=== PATIENT | male | born 1965 | race Caucasian/White ===

== ENCOUNTER 2022-07-06 07:16 | Emergency (ER) | payer OTHER, SELFPAY ==
[2022-07-06] VITALS (30 sets, daily range): BP systolic 117–176; BP diastolic 70–97; PULSE 55–76; RESP 13–22; TEMP 36.6–37.1; O2SAT 96–100; BMI 29.5
--- NOTE | 2022-07-06 07:49 | DI.RAD.S_ITS ---
PROCEDURE: XR CHEST 1V INDICATIONS: chest pain TECHNIQUE: One view of the chest was acquired. COMPARISON: None. FINDINGS: Surgical changes and devices: None. Lungs and pleura: Lungs are clear. No pleural effusions or pneumothorax. Mediastinum: Mediastinal contours appear normal. Heart size is normal. Bones and chest wall: No suspicious bony lesions. Overlying soft tissues appear unremarkable. IMPRESSION: No acute cardiopulmonary abnormality. Dictated by: Ole Dia M.D. on 07/06/2022 at 8:20 Approved by: Ole Dia M.D. on 07/06/2022 at 8:25
--- NOTE | 2022-07-06 07:49 | ED.CHESTPAIN ---
HPI - Chest Pain General Chief Complaint: Chest Pain Stated Complaint: high blood pressure, chest pain Time Seen by Provider: 07/06/22 07:21 Source: patient Mode of arrival: Ambulatory Limitations: no limitations Limitations: no limitations History of Present Illness HPI narrative: This is a 57-year-old male who presents with complaint of intermittent chest pain that he describes as epigastric and left substernal since 1993. Patient states that he had nuclear med stress test as well as other stress test in the 1999 until he left the in 2014. He states it is intermittent sometimes he will have it frequently over a couple weeks and it will disappear for couple months, he states recently he followed up with his primary for some bursitis and they told him to watch his blood pressure was somewhat elevated he is found it has been 120-149 systolic at home, they did blood work and found his cholesterol is elevated he was prediabetic which he states has been stressing him. States pain does not radiate. This has been the same symptoms over the past several decades, patient describes it as sometimes dull sometimes sharp ranging from 11/07 in intensity had a quite a bit frequently this morning and he states that sometimes it can be a couple minutes or a couple hours and then resolved. States nothing seems to exacerbate it or make it worse often he is lying in bed in the morning when it occurs. Patient denies any shortness of breath, no lightheadedness or syncope, no diaphoresis, no swelling in extremities, no nausea or vomiting, no other GI or urinary symptoms. He is not on any daily medications at this point. Patient states he is had surgeries for an ulnar nerve repair and fingers cysts. He is allergic to neomycin, no tobacco occasional alcohol, no illicit. His primary care is LAURA Fisher at the [facility]. He denies any known cardiac history, no vascular or embolic history. Dad of mesothelioma, mom he states had some failure to thrive and rheumatoid arthritis but no cardiac history. He has a sibling who he states isn't very healthy but no known cardiac disease. Related Data Home Medications Medication Instructions Recorded Confirmed No Known Home Medications 01/15/21 01/22/21 Allergies Allergy/AdvReac Type Severity Reaction Status Date / Time neomycin Allergy Unknown Verified 07/06/22 07:59 Review of Systems Review of Systems ROS Unobtainable: All systems reviewed & are unremarkable except as noted in HPI and below Patient History Surgical History Hx of elbow surgery Hx of removal of cyst Family History Mother Breast cancer Father Cancer Social History marital status: household members: spouse and children Smoking Status: Never smoker alcohol intake: current substance use type: does not use Smoking Status: Never smoker alcohol intake frequency: a few times a month Substance Use Type: does not use Exam Narrative Exam Narrative: GENERAL: Alert and oriented x three, male in mild distress HEENT: Head normocephalic, atraumatic, EOMI, pupils reactive, face symmetric, moist mucous membranes NECK: Supple, full range of motion CARDIOVASCULAR: Regular rate and rhythm without murmurs, rubs or gallops. Non reproducible chest pain. No JVD. No swelling bilateral lower extremities. RESPIRATORY: Breath sounds equal bilaterally, no wheezes rales or rhonchi. ABDOMEN: Soft, nontender. Normoactive bowel sounds all 4 quadrants. No guarding or rebound, rigidity, no mass, no pulsatile mass or bruit : No CVA tenderness EXTREMITIES: Normal range of motion, no clubbing or edema. Neurovascularly intact NEUROLOGICAL: Cranial nerves II through XII grossly intact. Moving all extremities SKIN: Warm, dry, no petechiae, no rashes or lesions. Initial Vital Signs Initial Vital Signs: Vital Signs Temperature 98.7 F 07/06/22 07:17 Pulse Rate 76 07/06/22 07:17 Respiratory Rate 16 07/06/22 07:17 Blood Pressure 176/92 H 07/06/22 07:17 Pulse Oximetry 100 07/06/22 07:17 Oxygen Delivery Method 07/06/22 07:17 Scores HEART Score Heart Score history: Slightly Suspicious Heart Score EKG: Normal Heart Score Age: 45-64 years old Heart Score risk factors: 1-2 risk factors Course Orders Ordered: ED Orders 07/06/22 10:08 CT angio chest abdomen pelvis Stat 07/06/22 10:19 Trop I [Troponin I] Stat 07/06/22 10:34 EKG-12 Lead Routine Vital Signs Vital signs: Vital Signs - 8 hr 07/06/22 09:50 07/06/22 10:12 07/06/22 10:28 Temperature Pulse Rate 61 Respiratory Rate 14 Blood Pressure 156/97 H 138/81 Pulse Oximetry 98 Oxygen Delivery Method 07/06/22 10:28 07/06/22 10:30 07/06/22 10:30 Temperature Pulse Rate 62 58 L Respiratory Rate 18 19 Blood Pressure 133/74 Pulse Oximetry 96 100 Oxygen Delivery Method 07/06/22 10:31 07/06/22 10:31 07/06/22 11:00 Temperature Pulse Rate 55 L Respiratory Rate Blood Pressure 130/74 117/70 Pulse Oximetry 100 Oxygen Delivery Method 07/06/22 11:00 07/06/22 11:10 07/06/22 11:10 Temperature 98 F Pulse Rate 56 L 59 L Respiratory Rate 14 22 Blood Pressure 120/74 Pulse Oximetry 99 100 Oxygen Delivery Method Room Air MDM - Chest Pain Lab Data Result diagrams: 07/06/22 07:42 07/06/22 07:42 Labs: Lab Results 07/06/22 07/06/22 07/06/22 Range/Units 07:42 07:42 10:19 WBC 4.8 (4.5-11.0) X10^3/uL RBC 4.45 L (4.5-5.9) X10^6/uL Hgb 14.5 (13.5-17.5) g/dL Hct 42.8 (41-53) % MCV 96.1 (80-100) fL MCH 32.5 (26-34) PG MCHC 33.8 (30-36) % RDW 13.6 (11.6-14.8) % Plt Count 275 (150-400) X10^3/uL Neut % (Auto) 64.4 (50-75) % Lymph % (Auto) 25.8 (25-40) % [place] % (Auto) 7.9 (3-14) % Eos % (Auto) 1.4 L (2-4) % Baso % (Auto) 0.5 (0-2) % Neut # (Auto) 3100 (3084-8516) /uL Lymph # (Auto) 1200 (2510-9606) /uL [place] # (Auto) 400 (0-900) /uL Eos # (Auto) 100 (0-450) /uL Baso # (Auto) 0 (0-100) /uL Sodium 139 (137-145) mmol/L Potassium 4.5 (3.4-5.1) mmol/L Chloride 105 (98-107) mmol/L Carbon Dioxide 25 (22-32) mmol/L BUN 15 (9-20) mg/dL Creatinine 0.89 (0.66-1.25) mg/dL Estimated GFR > 60 (>60) mL/min BUN/Creatinine Ratio 16.9 (6-22) Glucose 108 H (70-100) mg/dL Calcium 8.8 (8.4-10.2) mg/dL Magnesium 2.1 (1.6-2.3) mg/dL Total Bilirubin 0.7 (0.2-1.3) mg/dL AST 43 (17-59) IU/L ALT 31 (<50) IU/L Alkaline Phosphatase 90 (38-126) U/L Total Creatine Kinase 189 H (55-170) U/L CK-MB (CK-2) 2.38 H (<2.37) ng/mL CK-MB (CK-2) Rel Index 1.3 L (1.5-5.0) % Troponin I < 0.012 < 0.012 (0.01-0.034) ng/mL Total Protein 7.6 (6.3-8.2) g/dL Albumin 4.1 (3.5-5.0) g/dL Globulin 3.5 (1.7-4.1) g/dL Albumin/Globulin Ratio 1.2 (1.0-2.8) Lipase 129 (23-300) U/L Imaging Data Chest x-ray: Radiologist's Impression: [place], [place] [address]CT Scan ReportSigned Patient: Chandni Pichardo [facility]#: [id number]: 2Acct:[id number]/Sex: 77 / FDate of Service: 07/05/22Loc: EDAccession Number: [id number]? ? Procedure: CT head/brain wo con Ordering Provider: Rosemary Reyes D.O. PROCEDURE:? CT HEAD/BRAIN WO CON ? INDICATIONS:? tingling, face, left arm, vision change, CODY ? TECHNIQUE:? Noncontrast 4.5 mm thick angled axial sections acquired from the foramen magnum to the vertex, with coronal and sagittal reformats.? For radiation dose reduction, the following was used:? automated exposure control, adjustment of mA and/or kV according to patient size.? ? COMPARISON:? None. ? FINDINGS:? Image quality:? Excellent.? ? CSF spaces:? Basal cisterns are patent.? No extra-axial fluid collections.? The ventricles are symmetric in size and shape.? ? Brain:? No intracranial bleeds or masses.? There is cerebral volume loss for age, with resultant ventricular and sulcal prominence.? There are periventricular and deep white matter chronic small vessel ischemic changes.? There is intracranial internal carotid artery atherosclerosis.? ? Skull and face:? Calvarium and visualized facial bones appear intact, without suspicious lesions.? ? Sinuses:? Visualized sinuses and mastoids are clear.? ? IMPRESSION:? ? 1. No CT evidence of acute intracranial process.? ? 2. Age-appropriate cerebral cortical volume loss and chronic microvascular ischemic changes.? Dictated by: Ara Vaughn M.D. on 07/05/2022 at 16:15? ?? Approved by: Ara Vaughn M.D. on 07/05/2022 at 16:20?? ECG Data Attestation: I personally reviewed and interpreted this ECG as follows: Prior ECG tracings: available for review Interpretation: Sinus bradycardia rate of 59 NE 172 QRS of 94 and QTC of 401 patient has prior from 09/16/[address] changes. EKG 2. Shows sinus bradycardia rate of 50 5p are 172 QRS 90 QTC [address]. No acute ST elevation appreciated patient has T-wave inversion in 3 only. No dynamic changes otherwise appreciated. MDM Narrative Medical decision making narrative: This is a 57-year-old male with intermittent chest pain over the intermediate card tender presents today as it has recurred, he is had multiple cardiac workups no part cardiac catheterization in the past but new med stress test as well as treadmill stress test multiple times. Patient does note that recently he was told his cholesterol was little bit elevated and that he was prediabetic he does not know what his results were and he has been checking his blood pressure had been running 120s to 149 at home. Patient's labs are overall reassuring, patient has had longstanding intermittent chest discomfort he is never had ultrasound of his aorta or CT imaging discuss risks versus benefits and decision was made to evaluate with angio, this was reassuring. Plan for patient to follow up with primary care all questions answered. Patient's blood pressure was improving here in the department so did not initiate blood pressure medication he has short-term follow-up regarding this and they can adjust or add any medication as needed. Discharge Plan Departure Patient Disposition: Home Clinical Impression: Chest pain Activity Restrictions/Additional Instructions: Follow-up with your physician for recheck, talk with your physician about starting blood pressure medication but I would not started today I would follow with them to make this final decision monitoring your blood pressure. Your labs here today are overall reassuring, your EKG does not show any changes from 2010. Your CT does not show any changes to the structures in your chest or blood vessels. Please return for new or worsening symptoms, increasing chest pain, shortness of breath, passing out, new swelling in her extremities or other new or concerning symptoms. Prescriptions: No Action No Known Home Medications Referrals: ProviderDavon [Primary Care Provider] - Visit Report Forms: Patient Portal/API
[2022-07-06 08:03] LABS: Add Manual Diff / Slide Review NO; Basophils Absolute Auto 0 /uL (0-100); Basophils Percent Auto 0.5 % (0-2); Eosinophils Absolute Auto 100 /uL (0-450); Eosinophils Percent Auto 1.4 % (2-4); Hematocrit 42.8 % (41-53); Hemoglobin 14.5 g/dL (13.5-17.5); Lymphocytes Absolute Auto 1200 /uL (1100-4500); Lymphocytes Percent Auto 25.8 % (25-40); Mean Corpuscular HGB Conc 33.8 % (30-36); Mean Corpuscular Hemoglobin 32.5 PG (26-34); Mean Corpuscular Volume 96.1 fL (80-100); Monocytes Absolute Auto 400 /uL (0-900); Monocytes Percent Auto 7.9 % (3-14); Neutrophils Absolute Auto 3100 /uL (1500-7000); Neutrophils Percent Auto 64.4 % (50-75); Platelet Count 275 X10^3/uL (150-400); Red Blood Cell Count 4.45 X10^6/uL (4.5-5.9); Red Cell Distribution Width 13.6 % (11.6-14.8); White Blood Cell Count 4.8 X10^3/uL (4.5-11.0)
[2022-07-06 08:09] LABS: Alanine Aminotransferase 31 IU/L (<50); Albumin 4.1 g/dL (3.5-5.0); Albumin Globulin Ratio 1.2 (1.0-2.8); Alkaline Phosphatase 90 U/L (38-126); Aspartate Aminotransferase 43 IU/L (17-59); BUN Creatinine Ratio 16.9 (6-22); Bilirubin Total 0.7 mg/dL (0.2-1.3); Blood Urea Nitrogen 15 mg/dL (9-20); Calcium 8.8 mg/dL (8.4-10.2); Carbon Dioxide 25 mmol/L (22-32); Chloride 105 mmol/L (98-107); Creatine Kinase 189 U/L (55-170); Estimated Glomerular Filt Rate > 60 mL/min (>60); Globulin 3.5 g/dL (1.7-4.1); Glucose 108 mg/dL (70-100); HEMOLYSIS 26 (0-50); Lipase 129 U/L (23-300); Magnesium 2.1 mg/dL (1.6-2.3); Potassium 4.5 mmol/L (3.4-5.1); Sodium 139 mmol/L (137-145); Total Protein 7.6 g/dL (6.3-8.2)
[2022-07-06 08:21] LABS: Troponin I < 0.012 ng/mL (0.01-0.034)
[2022-07-06 08:24] LABS: CKMB % Relative Index 1.3 % (1.5-5.0); Creatine Kinase MB 2.38 ng/mL (<2.37)
--- NOTE | 2022-07-06 10:08 | DI.CT.S_ITS ---
PROCEDURE: CT ANGIO CHEST ABDOMEN PELVIS INDICATIONS: chest pain, acute on chronic TECHNIQUE: Precontrast 5 mm thick sections acquired from the lung apices to the iliac crests. After the administration of intravenous contrast, 2.5 mm thick sections again acquired from the lung apices to the iliac crests. Maximum intensity projection (MIP) oblique sagittal and coronal reformats were then acquired. For radiation dose reduction, the following was used: automated exposure control. COMPARISON: None. FINDINGS: Image quality: Excellent. CHEST: Lungs and pleura: No acute air space opacities. No pleural effusions or pneumothorax. Central and peripheral airways are patent and normal in caliber. Mediastinum: Heart size is normal. No pericardial effusion. No mediastinal adenopathy by size criteria. Thoracic aorta and central pulmonary arteries are normal in size. Esophagus is normal in caliber. No hiatal hernia. Chest wall: No axillary or supraclavicular adenopathy by size criteria. Thyroid gland is normal . ABDOMEN: Solid organs: Liver: The liver has no mass or intrahepatic biliary ductal dilatation. The portal vein and hepatic veins are patent. Biliary: The gallbladder has no gallstones, pericholecystic fluid, gallbladder wall thickening, or surrounding inflammatory change. Pancreas: The pancreas has no mass or ductal dilatation. There is no surrounding inflammation. Spleen: Normal size. There are no masses. Adrenals: No hypertrophy or nodules. Kidneys: No obstructive calculus or hydronephrosis. No solid mass. No cystic mass. Bowel: The distal esophagus and stomach are normal. The small bowel has a normal caliber and appearance. The terminal ileum is normal. The large bowel has a normal caliber and appearance. The appendix is normal. No free fluid or air. Nodes and vessels: No retroperitoneal or mesenteric adenopathy by size criteria. Aorta and inferior vena cava are normal in size. Abdominal wall: No abdominal wall mass or hernia. PELVIS: Genitourinary: The bladder has no wall thickening or mass. No bladder calcifications. BONES: No suspicious bony lesions. No vertebral body compression fractures. IMPRESSION: 1. Normal thoracic and abdominal aorta. No evidence of dissection, aneurysm, vasculitis, or stenosis. 2. No acute abnormality of the chest, abdomen, or pelvis. Dictated by: Ole Dia M.D. on 07/06/2022 at 10:44 Approved by: Ole Dia M.D. on 07/06/2022 at 10:52
[2022-07-06 10:52] LABS: Troponin I < 0.012 ng/mL (0.01-0.034)
== END 2022-07-06 11:16 | disposition home or self-care (01) ==
PROVIDERS: Emergency Provider Emergency Medicine
DX: R07.9 Chest pain, unspecified (principal); E78.5 Hyperlipidemia, unspecified; R00.1 Bradycardia, unspecified
CPT/HCPCS: 36415; 71045; 71275; 74174; 80053; 82550; 82553; 83690; 83735; 84484; 85025; 93005; 99284; Q9967

== ENCOUNTER → 2022-07-29 13:11 | Outpatient (CLI) | payer OTHER, SELFPAY ==
[2022-07-29 13:56] LABS: COVID19 -Nasal RAPID Negative (Negative)
== END ==
PROVIDERS: Referring Provider Radiology Diagnostic Radiology; Visit Provider Radiology Diagnostic Radiology
DX: Z20.822 Contact with and (suspected) exposure to COVID-19 (principal)
CPT/HCPCS: 87635; C9803

== ENCOUNTER → 2022-07-30 07:40 | Outpatient (CLI) | payer OTHER, SELFPAY ==
--- NOTE | 2022-07-30 19:21 | DI.NM.S_ITS ---
DATE OF SERVICE: 07/30/2022 PROCEDURE: Exercise stress test. INDICATION: Chest pain with underlying hyperlipidemia. CARDIAC STRESS: The patient underwent exercise stress test under the supervision of an attending staff. The patient walked on [place] protocol for 9 minutes and 53 seconds, achieved 12.8 METs of workload and LULU -9 percent. Baseline blood pressure 100/70 mmHg. Peak blood pressure 198/70 mmHg. Maximum heart rate 153, which was 95 percent of target heart rate. Baseline rhythm was sinus and diffuse repolarization changes with up to [address] elevation in diffuse leads without any obvious [place] segment depression or elevation. During exercise, the patient has nonconsistent 1.5-[address]- depression in inferior leads, as well as leads V4 to V6, which got resolved to baseline in 1.5 minutes in recovery. Those changes were not consistent. The patient had sharp left lateral chest pain prior to exercise, which did not get worse during exercise. No significant arrhythmias seen. CONCLUSION: Exercise stress test indeterminate for inducible ischemia. The patient has baseline repolarization changes. Inconsistent ST depression up to 2 mm (downsloping horizontal in inferior leads and leads V4 to V6). Good exercise tolerance. Normal hemodynamic response. No convincing arrhythmia. Atypical chest pain prior to exercise, which did not get worse during exertion. Correlate clinically. In view of above-mentioned electrocardiographic changes, consider repeating exercise stress test with imaging modality, like exercise stress echo or exercise stress test perfusion study for further coronary artery disease diagnosis and risk stratification. Ellis Boyd - Jaylyn/danita doc#: [id number]/job#: [id number] dd: 07/30/2022 17:22:00 dt: 07/30/2022 18:25:00 DICTATING MD/COPIES TO: Filipe Tran MD COPIES MNE: ERICK;
== END ==
PROVIDERS: Referring Provider Physician Assistant; Visit Provider Physician Assistant
DX: R07.9 Chest pain, unspecified (principal); E78.5 Hyperlipidemia, unspecified
CPT/HCPCS: 93017